=== PATIENT | female | born 1950 | race Caucasian/White ===

== ENCOUNTER 2017-03-17 21:49 | Emergency (ER) | payer OTHER, BC ==
--- NOTE | 2017-03-17 22:04 | PDOC ---
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 Since the relatives that she is staying with have ticks in their backyard, and patient has been in the backyard numerous times, she is here for evaluation of the area, believing that it may represent an embedded tick. Patient has a history of rheumatoid arthritis as well as hypertension. No history of Lyme disease or other tickborne illness. She has not had any recent fever/chills or myalgias/malaise. Although patient has a history of painful mouth sores after receiving tetracycline many years ago and was told that she should not Be prescribed tetracycline in the future, patient states that if she needs treatment for Lyme or other tickborne illnesses that she would not refuse tetracycline family antibiotics if prescribed. Past History - Past Medical History Allergies/Adverse Reactions: Allergies Allergy/AdvReac Type Severity Reaction Status Date / Time pineapple Allergy Mild Verified 03/17/17 22:00 Tetracyclines AdvReac Mild Verified 03/17/17 22:00 Cholinesterase AdvReac Unknown Verified 03/17/17 22:00 Inhibitor(Carbamate) Home Medications: Ambulatory Orders Amlodipine Besylate 10 mg PO DAILY 03/17/17 Aspirin [Aspirin EC] 81 mg PO HS 03/17/17 Etanercept [Enbrel] 50 mg SQ WEEKLY 03/17/17 Fenofibrate Nanocrystallized [Triglide] 160 mg PO DAILY 03/17/17 Folic Acid 3 mg PO DAILY 03/17/17 Furosemide 5 mg PO DAILY 03/17/17 Lisinopril HS 03/17/17 Methotrexate [Mexate -] 25 mg PO Q7D 03/17/17 Metoprolol Succinate [Toprol Xl] 100 mg PO DAILY 03/17/17 Oxycodone Sr [Oxycontin] 20 mg PO BID PRN 03/17/17 Potassium Chloride [K-Dur -] 20 meq PO HS 03/17/17 Ranitidine [Zantac -] 150 mg PO DAILY 03/17/17 Review of Systems - Review of Systems Able to Perform ROS?: Yes Comments:: 12 point review of systems is negative except for what is noted in the history of present illness *Physical Exam - Physical Exam Comments: GENERAL: Adult female, alert and oriented 3, no acute distress ABDOMEN:.normal bowel sounds No guarding,tenderness or rebound.No masses No distention. EXTREMITIES: Normal range of motion, no edema. No clubbing or cyanosis. No erythema, or tenderness. NEUROLOGICAL: Cranial nerves II through XII grossly intact. Normal speech. No focal neurological deficits. MUSCULOSKELETAL: Back non-tender to palpation, no CVA tenderness SKIN: Left flank 4 mm diameter oval, dark lesion surrounded by circular ecchymotic area (1.5 cm diameter) Nontender, nonfluctuant; no bleeding or purulent discharge from the lesion No other significant lesions or rash noted; skin is warm and dry with excellent capillary refill Medical Decision Making - Medical Decision Making As noted above, patient has nonpainful small dark area of the left flank that patient believes to be a tick that is embedded in her skin. EMLA topical anesthetic applied to the area for approximately 10 minutes Cream removed and area cleansed with Hibiclens/alcohol solution. Sterile drape applied and, using sterile technique, small (1 mm) incision made into the lesion. Dark blood (small amount) immediately drained out of the area. There was no evidence of insect body/legs. Wound cleansed thoroughly with sterile normal saline. No further bleeding noted. Bacitracin/Band-Aid applied. Patient will be discharged with instructions to use local antibiotic ointment/ Band-Aid as needed. She should return to the emergency room if area becomes swollen/erythematous/painful. Otherwise, she should follow-up with her general doctor when she returns home after visiting her relatives in this area. *DC/Admit/Observation/Transfer Diagnosis at time of Disposition: Hematoma of skin - Discharge Dispostion Disposition: HOME Condition at time of disposition: Stable - Referrals Referrals: Sonia Tripp MD [Primary Care Provider] - - Patient Instructions Printed Discharge Instructions: DI for Contusion Additional Instructions: Bacitracin/Band-Aid to the area daily for the next few days Return if area becomes painful/red/swollen Follow-up with your physician as needed when you return home
[2017-03-17 22:13] VITALS: BP 160/79; PULSE 65; TEMP 98; BMI 35.9
[2017-03-17] MEDS ORDERED: LIDOCAINE 2.5%/PRILOCAINE 2.5% (5 Gram/TUBE) TP ONE (22:23)
== END 2017-03-17 23:01 | disposition home or self-care (01) ==
LOC: FER 21:49
PROC: 0H97XZZ Drainage of Abdomen Skin, External Approach (ICD-10-PCS; principal; 2017-03-17)
DX: S30.1XXA Contusion of abdominal wall, initial encounter (principal); M06.9 Rheumatoid arthritis, unspecified; I10 Essential (primary) hypertension; Z79.82 Long term (current) use of aspirin
CPT/HCPCS: 10140; 99281-25